=== PATIENT | female | born 2005 | race Caucasian/White ===

== ENCOUNTER 2025-09-12 03:49 | Emergency (ER) | payer BC, SELFPAY ==
[2025-09-12 04:04] VITALS: BP 144/91
--- NOTE | 2025-09-12 05:01 | ED.GENMED ---
History of Present Illness
General
Chief Complaint: Abdominal Pain
Source: patient and family
Exam Limitations: none
Time Seen by Provider: 09/12/25 04:17
Nursing documentation reviewed up to this point in time: agreed with
History of Present Illness
History of Present Illness:
Patient presents to ED secondary to persistent upper abdominal pain over the past 3 days, which worsened this evening. Abdominal pain described as sharp, initially started on right side, but now on the left side, without any alleviating or
exacerbating factors. Denies trauma. Denies fever or chills. Denies nausea, vomiting, or diarrhea. Denies recent change in medications or diet. Denies previous history of similar symptoms. Denies difficulty with urination. Denies family
history of kidney stones.
Review of Systems
Review of Systems
Allergies reviewed?: Yes
All Other Systems: ROS reviewed and negative except as documented in HPI and ROS
Constitutional: Reports no symptoms
Respiratory: Reports no symptoms
Cardiac: Reports no symptoms
ABD/GI: Reports abdominal pain; Denies vomiting or diarrhea
: Reports no symptoms
Musculoskeletal: Reports no symptoms
Skin: Reports no symptoms
Neurological: Reports no symptoms
Phy Exam
Physical Exam
Physical Exam:
Physical Exam
General: mild painful distress, not acutely ill. afebrile
Head: nc/at. eomi
Neck: supple. normal range of motion.
Abdomen: normal bowel sounds. no distention. mild RUQ/epigastric tenderness to palpation
Neuro: alert and oriented x 3. no focal neurological deficits
Skin: no rash
Psychiatric: well kept. interactive and cooperative
Extremities: no edema. no calf tenderness.
Course
Orders/Labs/Results
Orders:
Orders
09/12/25 04:21
Ketorolac [Toradol] 15 mg IV NOW STA
Pantoprazole [Protonix IV] 40 mg IV NOW STA
Test Result ONCE
US Abdomen Complete/Upper Urgent
Comment:
Reason For Exam: RUQ pain
09/12/25 04:22
0.9% Sodium Chloride 500 ml [Nss] 500 ml IV BOLUS
09/12/25 05:00
0.9% Sodium Chloride [Nss (Preservative Free)] 10 ml IV NOW STA
09/12/25 05:11
Complete Blood Count/With Diff Urgent
Comprehensive Metabolic Panel Urgent
HCG, Serum Qualitative Screen Urgent
Lipase Urgent
09/12/25 05:41
Monotest Urgent
09/12/25 05:11
09/12/25 05:11
Vital Signs
Initial and Last Documented VS:
Initial Vital Signs
Temp Pulse Resp BP Pulse Ox
98.4 F 96 20 144/91 99
09/12/25 04:04 09/12/25 04:04 09/12/25 04:04 09/12/25 04:04 09/12/25 04:04
Last Documented Vital Signs
Temp Pulse Resp BP Pulse Ox
98.4 F 84 20 144/74 98
09/12/25 04:04 09/12/25 06:06 09/12/25 06:06 09/12/25 06:06 09/12/25 06:06
MDM/Problems Addressed
MDM/Problems Addressed:
Patient with an unremarkable workup in ED, including blood work and ultrasound. Patient otherwise remains afebrile, hemodynamically stable, and nontoxic-appearing. Patient reports improvement symptoms after treatment. Repeat abdominal exam: Soft
and nontender. Patient presenting symptoms consistent with nonspecific abdominal pain, likely viral versus gastritis versus ulcer. Patient will be advised to take PPI as an outpatient, along with prescribed Carafate, as well as diet modification.
Patient also referred to GI physician for an outpatient consultation, or with consideration to return to ED with worsening symptoms, i.e. fever/worsening pain/vomiting. Patient expressed understand at time of discharge, to the care of her family.
*Pulse Oximetry
SaO2: 99
Oxygen Mode of Delivery: Room air
Patient hypoxic: no
*Critical Care Note
Total Time (30-74mins, 75-104mins- exclusive of procedures): Not Applicable
ED Attending Note
-
Portions of this chart may have been created with voice recognition software.� Occasional wrong word or��sound alike� substitutions may have occurred due to the inherent limitations of voice recognition software.
Discharge Plan
Departure
Patient Disposition: Home (Routine Discharge)
Date of Disposition: 09/12/25
Time of Disposition: 06:23
Patient with high blood pressure during this ER visit?: Yes
Condition: Good
Discharge Problem:
Abdominal pain
Instructions: Blair diet, Abdominal Pain
Prescriptions:
New
sucralfate 100 mg/mL suspension
10 ml PO ACHS 7 Days Qty: 280 0RF
Referrals:
Sebas Brito MD [Active, Gastroenterology]
Teo Padron MD [Family Provider, Family Practice]
Activity Restrictions/Additional Instructions:
As discussed, please follow-up with your primary care physician and/or referred GI physician for reevaluation. Please consider return to ED with worsening symptoms, i.e. fever/worsening pain/vomiting. Your prescription has been sent electronically
to [facility] pharmacy in [place], which should be taken along with [id number] PPI medication, i.e. Prilosec/Pepcid/Nexium.
Interventions
Interventions:
*Risk Screen - Suicide Last Done: 09/12/25 04:07
*General Assessment Last Done: 09/12/25 04:07
*Neglect/Abuse Screening Last Done: 09/12/25 04:07
*ED- Fall Risk Assessment Last Done: 09/12/25 04:07
*ED COVID-19 Vaccine History Last Done: 09/12/25 04:07
*ED Influenza Vaccine History Last Done: 09/12/25 04:07
*Nursing Disposition Last Done: 09/12/25 06:38
JL-Aywwhx-Xwdadljvoe Assessment Last Done: 09/12/25 05:26
Discharge Date and Time
Discharge Date/Time: 09/12/25 06:40
Print Language: SWEDISH
[2025-09-12] MEDS: TORADOL 15 MG IV (05:14)
[2025-09-12] MEDS: NSS 500 IV (05:14)
[2025-09-12] MEDS: NSS (PRESERVATIVE FREE) 10 ML IV (05:16)
[2025-09-12] MEDS: PROTONIX IV 40 MG IV (05:16)
[2025-09-12 05:38] LABS: Hematocrit 40.7 % (37.0-47.0); Hemoglobin 13.6 g/dL (12.0-16.0); Mean Corp Hgb Conc. 33.4 g/dL (33.0-37.0); Mean Corpuscular Volume 87.7 fL (81.0-99.0); Nucleated Red Blood Cells % 0 %; Platelet Count 269 10^3/uL (130-400); Red Cell Dist. Width 12.9 % (11.5-14.5)
[2025-09-12 05:43] LABS: HCG, Serum Qualitative Screen Negative
[2025-09-12 05:48] LABS: ALT (SGPT) 12 U/L (0-35); AST (SGOT) 18 U/L (14-36); Albumin 4.7 g/dl (3.5-5.0); Alkaline Phosphatase 73 U/L (38-126); Blood Urea Nitrogen 12 mg/dl (7-17); Calcium 9.7 mg/dl (8.4-10.2); Carbon Dioxide 30 mmol/L (22-30); Chloride 101 mmol/L (98-107); Glucose 94 mg/dl (70-99); Lipase 80 U/L (23-300); Potassium 3.8 mmol/L (3.5-5.1); Sodium 137 mmol/L (135-145); Total Protein 7.5 g/dl (6.3-8.2); eGFR > 60.00
[2025-09-12 06:06] VITALS: BP 144/74
== END 2025-09-12 06:40 | disposition home or self-care (01) ==
LOC: EMR 03:49
PROVIDERS: EMERGENCY PHYSICIAN Emergency Medicine; FAMILY PHYSICIAN Family Medicine
DX: R10.11 Right upper quadrant pain (principal); R03.0 Elevated blood-pressure reading, without diagnosis of hypertension
CPT/HCPCS: 99284; 96374; 96375 ×2; 96361; 76700; 80053; 83690; 84703; 85025; 86308